=== PATIENT | male | born 1965 | race Caucasian/White ===

== ENCOUNTER → 2024-04-26 06:17 | Day surgery (SDC) | payer OTHER, SELFPAY | LOC: GI 06:17 | PROVIDERS: ATTENDING PHYSICIAN Internal Medicine | DX: Z12.11 Encounter for screening for malignant neoplasm of colon (principal); K51.50 Left sided colitis without complications; K63.5 Polyp of colon; K51.40 Inflammatory polyps of colon without complications | CPT/HCPCS: 45385; 45380; 88305 ==

== ENCOUNTER 2024-12-28 06:28 | Day surgery (SDC) | payer OTHER, SELFPAY | END 2024-12-28 13:51 | disposition home or self-care (01) | LOC: GI 06:28 | PROVIDERS: ATTENDING PHYSICIAN Internal Medicine | DX: K44.9 Diaphragmatic hernia without obstruction or gangrene (principal); K31.89 Other diseases of stomach and duodenum; K22.89 Other specified disease of esophagus; R76.8 Other specified abnormal immunological findings in serum; K22.70 Barrett's esophagus without dysplasia; K86.89 Other specified diseases of pancreas; B37.81 Candidal esophagitis; K29.50 Unspecified chronic gastritis without bleeding; K29.80 Duodenitis without bleeding | CPT/HCPCS: 43239; 88305; 88342 ==